=== PATIENT | male | born 1960 | race Caucasian/White ===

== ENCOUNTER 2017-04-17 12:15 | Emergency (ER) | payer MEDICARE, OTHER ==
[~2017-04-17] VITALS: Ht 172.7 cm; Wt 80.3 kg
[~2017-04-17 12:15] MED LIST: ACET650T10 PO; ACID1TAB12 PO; ALBU18HF2 INH; ALBU2.5V38 NEB; AMIO200T PO; ASCO500T9 PO; ASPI-1169 PO; BISA10SU8 RC; CLOP75TA15 PO; CRAN425C6 PO; DOCU-141 PO; FLUT1DIS3 INH; LORA-259 PO; MAGN400O6 PO; METO25TA6 PO; MULT1TAB11 PO; NA P133E RC; NITR0.4T48 SL; OLAN5TAB3 PO; PANT40TA2 PO; TIOT18CA3 INH
--- NOTE | 2017-04-17 12:30 | NUR ---
[facility] FROM [facility] DT LEFT FLANK PAIN X 3 WEEKS WORST TODAY. PATIENT IS AWAKE AND ALERT, APPEARS IN NO APPARENT DISTRESS. DENIES N/V/D, NO HEMATURIA NOR DYSURIA. VSS. PATIENT IS VENT/ TRACHE DEPENDENT. VSS
[2017-04-17 12:44] LABS: APPEARANCE,URINE Clear (CLEAR); BILIRUBIN,URINE Negative (NEGATIVE); BLOOD, URINE Negative Ery/uL (NEGATIVE); COLOR,URINE Yellow (YELLOW); KETONES,URINE Negative (NEGATIVE); LEUKOCYTE ESTERASE ,URINE Negative (NEGATIVE); NITRITE, URINE Negative (NEGATIVE); PROTEIN,URINE Negative (NEGATIVE); UGLUCOSE Negative (NEGATIVE); UROBILINOGEN,URINE 0.2 EU/dL (0.2)
[2017-04-17 12:55] LABS: BASOPHILS # (AUTO) 0.1 /CMM (0.0-0.2); BASOPHILS % (AUTO) 1.3 % (0.0-2.0); EOSINOPHILS # (AUTO) 0.1 /CMM (0.0-0.7); EOSINOPHILS % (AUTO) 1.3 % (0.0-6.0); HEMATOCRIT 34 % (39-51); HEMOGLOBIN 11.6 g/dL (13.5-17.5); LYMPHOCYTES # (AUTO) 1.2 /CMM (0.8-4.8); LYMPHOCYTES % (AUTO) 10.3 % (20.0-44.0); MEAN CORPUSCULAR HEMOGLOBIN 29 PG (26.0-33.0); MEAN CORPUSCULAR HGB CONC 34 g/dl (31.0-36.0); MEAN CORPUSCULAR VOLUME 85 fL (80-96); MONOCYTES # (AUTO) 0.5 /CMM (0.1-1.30); MONOCYTES % (AUTO) 4.8 % (2.0-12.0); NEUTROPHILS # (AUTO) 9.5 /CMM (1.8-8.9); NEUTROPHILS % (AUTO) 82.3 % (43.0-81.0); PLATELET COUNT (AUTO) 268 /CMM (150-450); RDW COEFFICIENT OF VARIATION 11.7 (11.5-15.0); RED BLOOD CELL COUNT(AUTO) 3.99 MIL/uL (4.5-6.0); WHITE BLOOD COUNT (AUTO) 11.4 K/uL (4.3-11.0)
[2017-04-17] MEDS ORDERED: ONDANSETRON HCL/PF - ER 4 MG/2 ML VIAL IV ONE (13:00)
[2017-04-17] MEDS ORDERED: IV NS 0.9% 1,000 ML BAG IV ONE (13:00)
[2017-04-17] MEDS ORDERED: HYDROMORPHONE 1 MG/1 ML DISP.SYRIN IV ONE (13:00)
[2017-04-17 13:06] LABS: CALCIUM, SERUM 9.4 mg/dL (8.5-10.1); CARBON DIOXIDE 38 mmol/L (21-32); CHLORIDE 100 mmol/L (98-107); CREATININE 0.6 mg/dL (0.6-1.3); GLUCOSE 86 mg/dL (74-106); POTASSIUM 4.5 mmol/L (3.5-5.1); SODIUM SERUM 137 mmol/L (136-145); UREA NITROGEN, BLOOD 13 mg/dL (7-18)
[2017-04-17] MEDS ORDERED: ONDANSETRON HCL/PF 4 MG/2 ML VIAL ONE (13:06)
[2017-04-17] MEDS ORDERED: HYDROMORPHONE 1 MG/1 ML DISP.SYRIN ONE (13:06)
[2017-04-17 13:08] LABS: INR 0.95 (0.85-1.15)
[2017-04-17 13:11] LABS: ALANINE AMINOTRANSFERASE 20 U/L (12-78); ALBUMIN 3.6 g/dL (3.4-5.0); ALKALINE PHOSPHATASE 145 U/L (46-116); ASPARTATE AMINOTRANSFERASE 16 U/L (15-37); BILIRUBIN,DIRECT 0.1 mg/dL (0.0-0.2); BILIRUBIN,TOTAL 0.2 mg/dL (0.2-1.0); TOTAL PROTEIN, SERUM 8.1 g/dL (6.4-8.2)
[2017-04-17 13:13] LABS: TROPONIN I < 0.017 ng/mL (0.00-0.056)
[2017-04-17] MEDS ORDERED: IOHEXOL-300 100 ML VIAL IV ONE (13:25)
[2017-04-17] MEDS ORDERED: IV NS 0.9% 500 ML IV ONE (13:25)
--- NOTE | 2017-04-17 15:52 | NUR ---
CALLED FOR [facility] TRANSPORT. [phone]
--- NOTE | 2017-04-17 17:35 | NUR ---
REPORT GIEN TO MAXIME RUSSELL THAT PATIENT IS GOING BACK TO FACILITY.
--- NOTE | 2017-04-17 17:41 | NUR ---
SPOKE WITH [facility] DISPATCHER, CHRISTOPHER, GIVEN A PROCESS ENGINEERING MANAGER TIME OF 1814. TRIP #[id number]
--- NOTE | 2017-04-17 18:54 | NUR ---
PTIENT WAS PICKED UP BY [facility] [employer]. VSS
[2017-04-17 19:08] VITALS: BP 133/74
== END 2017-04-17 18:57 | disposition home or self-care (01) ==
LOC: ER 12:16
DX: J96.10 Chronic respiratory failure, unspecified whether with hypoxia or hypercapnia (principal); R10.13 Epigastric pain; D72.829 Elevated white blood cell count, unspecified; D64.9 Anemia, unspecified; E11.9 Type 2 diabetes mellitus without complications; I10 Essential (primary) hypertension; F10.10 Alcohol abuse, uncomplicated; Z79.82 Long term (current) use of aspirin; Z93.0 Tracheostomy status; Z99.11 Dependence on respirator [ventilator] status; Z87.891 Personal history of nicotine dependence
CPT/HCPCS: 36415; 71045; 74160; 80048; 80076; 81001; 83605; 84484; 85025; 85730; 87040 ×2; 93005; 94002; 96361; 96374; 96375; 99285; A4606; J1170; J2405 ×2; J7040; Q9967; 81000-TC; Z7610

== ENCOUNTER 2017-09-19 19:14 | Inpatient (IN) | payer MEDICARE, OTHER ==
[~2017-09-19] VITALS: Ht 165.1 cm; Wt 89.8 kg
[~2017-09-19 19:14] MED LIST changes: +ALBUTEROL SULFATE 8 GM HFA.AER.AD IH PRN
[2017-09-19 19:30] VITALS: BP 136/91
[2017-09-19] MEDS ORDERED: IV NS 0.9% 500 ML BAG IV ONE (19:30)
[2017-09-19 19:51] LABS: BASOPHILS % (AUTO) 0.2 % (0.0-2.0); EOSINOPHILS % (AUTO) 2.8 % (0.0-6.0); HEMATOCRIT 39 % (39-51); LYMPHOCYTES # (AUTO) 1.2 /CMM (0.8-4.8); LYMPHOCYTES % (AUTO) 12.8 % (20.0-44.0); MEAN CORPUSCULAR HEMOGLOBIN 30 PG (26.0-33.0); MEAN CORPUSCULAR HGB CONC 34 g/dl (31.0-36.0); MEAN CORPUSCULAR VOLUME 90 fL (80-96); MONOCYTES # (AUTO) 0.6 /CMM (0.1-1.30); MONOCYTES % (AUTO) 6.9 % (2.0-12.0); NEUTROPHILS # (AUTO) 7.2 /CMM (1.8-8.9); NEUTROPHILS % (AUTO) 77.3 % (43.0-81.0); PLATELET COUNT (AUTO) 227 /CMM (150-450); RDW COEFFICIENT OF VARIATION 13.2 (11.5-15.0); WHITE BLOOD COUNT (AUTO) 9.3 K/uL (4.3-11.0)
[2017-09-19 20:20] LABS: CALCIUM, SERUM 9.6 mg/dL (8.5-10.1); CHLORIDE 100 mmol/L (98-107); CREATININE 0.7 mg/dL (0.6-1.3); GLUCOSE 96 mg/dL (74-106); POTASSIUM 5.1 mmol/L (3.5-5.1); SODIUM SERUM 140 mmol/L (136-145); UREA NITROGEN, BLOOD 17 mg/dL (7-18)
[2017-09-19] MEDS ORDERED: ALBUTEROL FS 2.5 MG/3 ML VIAL.NEB ONE (20:22)
[2017-09-19] MEDS ORDERED: IPRATROPIUM NEB FS 0.5 MG/2.5 ML AMPUL.NEB ONE (20:22)
[2017-09-19 20:24] LABS: CARBON DIOXIDE 44 mmol/L (21-32)
[2017-09-19 20:28] LABS: TROPONIN I < 0.017 ng/mL (0.00-0.056)
[2017-09-19] MEDS ORDERED: IPRATROPIUM NEB FS 0.5 MG/2.5 ML AMPUL.NEB NEB ONE (20:30)
[2017-09-19] MEDS ORDERED: ALBUTEROL FS 2.5 MG/3 ML VIAL.NEB NEB ONE (20:30)
[2017-09-19 20:49] LABS: ABG BASE EXCESS 11.6 mmol/L; ABG OXYGEN SATURATION 69.9 % (92.0-98.5); ABG PCO2 96.8 mmHg (35.0-45.0); ABG PH 7.261 (7.350-7.450); ABG PO2 40.5 mmHg (75.0-100.0); COHb 0.4 % (0.5-1.5); MetHb 0.5 % (0.0-1.5); O2Hb 69.3 % (94.0-97.0); PEEP,BG 5 cm H2O; SITE, ABG A-Line; VT, ABG 600 mL
[2017-09-19 20:55] VITALS: BP 97/75
[2017-09-19] MEDS ORDERED: PROSTAT PO (21:10)
[2017-09-19] MEDS ORDERED: [UNRECOGNIZED DRUG - OTHER] PO (21:22)
[2017-09-19] MEDS ORDERED: ALBU2.5V11 HHN (21:22)
[2017-09-19] MEDS ORDERED: IPRA12.9 IH (21:22)
[2017-09-19] MEDS ORDERED: ACET-73 PO (21:27)
[2017-09-19] MEDS ORDERED: methylPREDNISolone SOD SUCC 125 MG/2ML VIAL IV ONE (21:30)
[2017-09-19 21:40] LABS: THYROID STIMULATING HORMONE 2.27 uIU/mL (0.358-3.74)
[2017-09-19] MEDS ORDERED: AMIT25TA52 PO (21:42)
[2017-09-19] MEDS ORDERED: CHLO473M3 MM (21:42)
[2017-09-19] MEDS ORDERED: FERR325T23 PO (21:42)
[2017-09-19] MEDS ORDERED: ENOX40DI SUBCUT (21:42)
[2017-09-19] MEDS ORDERED: CLON0.5T PO (21:42)
[2017-09-19] MEDS ORDERED: LORA10TA68 PO (21:42)
[2017-09-19] MEDS ORDERED: ATOR10TA PO (21:42)
[2017-09-19] MEDS ORDERED: methylPREDNISolone SOD SUCC 125 MG/2ML VIAL ONE (21:42)
[2017-09-19] MEDS ORDERED: RANI150T8 PO (21:54)
[2017-09-19] MEDS ORDERED: PROP10TA10 PO (21:54)
[2017-09-19] MEDS ORDERED: HYDR-552 PO ×2 (21:54)
[2017-09-19] MEDS ORDERED: HYDR-3974 PO (21:54)
[2017-09-19] MEDS ORDERED: METH5TAB6 PO (21:54)
[2017-09-19] MEDS ORDERED: DEXT15DR6 EACHEYE (21:54)
[2017-09-19] MEDS ORDERED: IPRA12.9 HHN (22:05)
[2017-09-19] MEDS ORDERED: NITROGLYCERIN 0.4 MG/TAB BOTTLE SL PRN (23:30)
[2017-09-19] MEDS ORDERED: IPRATROPIUM BROMIDE 14 GM INHALER (or 12.9 GM) IH PRN (23:30)
[2017-09-20] VITALS: BP 113/80
[2017-09-20] MEDS ORDERED: ACETAMINOPHEN 325 MG TABLET PO PRN
[2017-09-20] MEDS ORDERED: ALBUTEROL FS 2.5 MG/0.5 ML VIAL.NEB NEB SCH
[2017-09-20] MEDS ORDERED: IPRATROPIUM NEB FS 0.5 MG/2.5 ML AMPUL.NEB NEB PRN
[2017-09-20] MEDS ORDERED: HYDROCODONE/APAP 5/325MG 1 EACH TABLET PO PRN
[2017-09-20] MEDS ORDERED: NA PHOS,M-B/NA PHOS,DI-BA 1 EA ENEMA RC PRN
[2017-09-20] MEDS ORDERED: MAGNESIUM HYDROXIDE 30 ML UDC PO PRN
[2017-09-20] MEDS: ALBUTEROL FS 2.5 MG/3 ML VIAL.NEB NEB SCH ×6 (01:45→23:30)
[2017-09-20] MEDS: ACETAMINOPHEN 325 MG TABLET PO SCH ×5 (01:45→23:57)
[2017-09-20 04:00] VITALS: BP 109/70
[2017-09-20] MEDS: IPRATROPIUM NEB FS 0.5 MG/2.5 ML AMPUL.NEB NEB SCH ×5 (07:35→23:30)
[2017-09-20 08:00] VITALS: BP 119/74
[2017-09-20] MEDS ORDERED: MAGN400T26 PO (08:04)
[2017-09-20] MEDS ORDERED: POLY15DR40 EACHEYE (08:04)
[2017-09-20] MEDS ORDERED: IPRA0.2S9 IH ×2 (08:04)
[2017-09-20] MEDS ORDERED: FLUTICASONE/VILANTEROL 1 EACH BLST.W.DEV IH SCH (09:00)
[2017-09-20] MEDS ORDERED: LORATADINE 10 MG TABLET PO SCH (09:00)
[2017-09-20] MEDS ORDERED: BISACODYL SUPP (10 MG) 10 MG/SUPP.RECT SUPP.RECT RC PRN (09:00)
[2017-09-20] MEDS: CHLORHEXIDINE GLUCONATE 15 ML UDC MM SCH ×3 (09:00→16:57)
[2017-09-20] MEDS: POLYVINYL ALCOHOL 15 ML BOTTLE EACHEYE SCH ×3 (09:00→16:57)
[2017-09-20] MEDS: LACTOBACILLUS RHAMNOSUS GG 1 EACH CAP.SPRINK PO SCH ×2 (10:12→16:56)
[2017-09-20] MEDS: LORATADINE 10 MG TABLET PO SCH (10:13)
[2017-09-20] MEDS: ASPIRIN 325 MG TABLET PO SCH (10:13)
[2017-09-20] MEDS: FERROUS SULFATE (325 MG) 325 MG/TAB TABLET PO SCH (10:13)
[2017-09-20] MEDS: CLOPIDOGREL BISULFATE 75 MG TABLET PO SCH (10:13)
[2017-09-20] MEDS: MULTIVITAMIN/LUTEIN/MINERALS 1 TAB PO SCH (10:13)
[2017-09-20] MEDS: ASCORBIC ACID 500 MG TABLET PO SCH (10:14)
[2017-09-20] MEDS: METHIMAZOLE (5MG) 5 MG TABLET PO SCH (10:14)
[2017-09-20] MEDS: clonazePAM 0.5 MG TABLET PO SCH ×2 (10:16→16:57)
[2017-09-20] MEDS: HYDROCODONE/APAP 5/325MG 1 EACH TABLET PO SCH (10:16)
[2017-09-20] MEDS: OLANZAPINE 2.5 MG TABLET PO SCH ×2 (10:17→16:57)
[2017-09-20] MEDS: PROSOURCE / PROSTAT (PYXIS) 30 ML UDC PO SCH (10:18)
[2017-09-20] MEDS: AMIODARONE HCL 200 MG TABLET PO SCH (10:19)
[2017-09-20] MEDS: PROPRANOLOL HCL 10 MG TABLET PO SCH ×3 (10:19→16:57)
[2017-09-20] MEDS: METOPROLOL TARTRATE 25 MG TABLET PO SCH ×2 (10:19→21:27)
[2017-09-20] MEDS: PANTOPRAZOLE 40 MG/PACK PACK PO SCH (10:20)
[2017-09-20 12:00] VITALS: BP 116/72
[2017-09-20] MEDS ORDERED: ALBUTEROL FS 2.5 MG/3 ML VIAL.NEB NEB PRN ×2 (14:00)
[2017-09-20 14:25] LABS: ABG BASE EXCESS 9.4 mmol/L; ABG OXYGEN SATURATION 97.2 % (92.0-98.5); ABG PCO2 67.7 mmHg (35.0-45.0); ABG PH 7.359 (7.350-7.450); ABG PO2 107.2 mmHg (75.0-100.0); AaDO2 100.1 mmHg; COHb 0.3 % (0.5-1.5); MetHb 0.5 % (0.0-1.5); O2Hb 96.4 % (94.0-97.0); PEEP,BG 8 cm H2O; SITE, ABG Left Radial; VENT MODE, BG AC 12 600 40% +8; VT, ABG 600 mL
[2017-09-20] MEDS: methylPREDNISolone SOD SUCC 125 MG/2ML VIAL IV SCH ×2 (14:36→21:25)
[2017-09-20 16:00] VITALS: BP 107/76
[2017-09-20] MEDS ORDERED: ALBUTEROL FS 2.5 MG/3 ML VIAL.NEB NEB SCH (17:00)
[2017-09-20] MEDS ORDERED: IPRATROPIUM NEB FS 0.5 MG/2.5 ML AMPUL.NEB NEB SCH (17:00)
[2017-09-20 20:00] VITALS: BP 110/74
[2017-09-20] MEDS: ATORVASTATIN 10 MG TABLET PO SCH (21:26)
[2017-09-20] MEDS: AMITRIPTYLINE HCL 25 MG TABLET PO SCH (21:26)
[2017-09-20] MEDS: DOCUSATE SODIUM 100 MG CAPSULE PO SCH (21:26)
[2017-09-20] MEDS: ENOXAPARIN SODIUM 30 MG/0.3 ML DISP.SYRIN SQ SCH ×2 (21:26→21:34)
[2017-09-21] VITALS: BP 111/76
[2017-09-21] MEDS: IPRATROPIUM NEB FS 0.5 MG/2.5 ML AMPUL.NEB NEB SCH ×6 (02:53→23:28)
[2017-09-21] MEDS: ALBUTEROL FS 2.5 MG/3 ML VIAL.NEB NEB SCH ×6 (02:54→23:28)
[2017-09-21 04:00] VITALS: BP 117/72
[2017-09-21] MEDS: ACETAMINOPHEN 325 MG TABLET PO SCH ×3 (05:07→17:15)
[2017-09-21] MEDS: PANTOPRAZOLE 40 MG/PACK PACK PO SCH (07:53)
[2017-09-21 08:00] VITALS: BP 128/89
[2017-09-21] MEDS: CHLORHEXIDINE GLUCONATE 15 ML UDC MM SCH ×2 (08:14→17:39)
[2017-09-21] MEDS: METHIMAZOLE (5MG) 5 MG TABLET PO SCH (08:14)
[2017-09-21] MEDS: methylPREDNISolone SOD SUCC 125 MG/2ML VIAL IV SCH ×2 (08:14→17:14)
[2017-09-21] MEDS: ASCORBIC ACID 500 MG TABLET PO SCH (08:14)
[2017-09-21] MEDS: ASPIRIN 325 MG TABLET PO SCH (08:14)
[2017-09-21] MEDS: LACTOBACILLUS RHAMNOSUS GG 1 EACH CAP.SPRINK PO SCH ×2 (08:15→17:15)
[2017-09-21] MEDS: LORATADINE 10 MG TABLET PO SCH (08:15)
[2017-09-21] MEDS: clonazePAM 0.5 MG TABLET PO SCH ×2 (08:15→17:15)
[2017-09-21] MEDS: HYDROCODONE/APAP 5/325MG 1 EACH TABLET PO SCH (08:15)
[2017-09-21] MEDS: CLOPIDOGREL BISULFATE 75 MG TABLET PO SCH (08:15)
[2017-09-21] MEDS: FERROUS SULFATE (325 MG) 325 MG/TAB TABLET PO SCH (08:15)
[2017-09-21] MEDS: AMIODARONE HCL 200 MG TABLET PO SCH (08:16)
[2017-09-21] MEDS: MULTIVITAMIN/LUTEIN/MINERALS 1 TAB PO SCH (08:22)
[2017-09-21] MEDS: OLANZAPINE 2.5 MG TABLET PO SCH ×2 (08:22→17:15)
[2017-09-21] MEDS: PROPRANOLOL HCL 10 MG TABLET PO SCH ×3 (08:23→17:15)
[2017-09-21] MEDS: METOPROLOL TARTRATE 25 MG TABLET PO SCH ×2 (08:23→20:40)
[2017-09-21] MEDS: POLYVINYL ALCOHOL 15 ML BOTTLE EACHEYE SCH ×3 (08:31→17:37)
[2017-09-21] MEDS: PROSOURCE / PROSTAT (PYXIS) 30 ML UDC PO SCH (08:31)
[2017-09-21 12:00] VITALS: BP 154/91
[2017-09-21 16:00] VITALS: BP 126/89
[2017-09-21] MEDS ORDERED: IV NS 0.9% 500 ML BAG IV ONE (16:00)
[2017-09-21 20:00] VITALS: BP 120/57
[2017-09-21] MEDS: HYDROCODONE/APAP 5/325MG 1 EACH TABLET PO PRN (20:40)
[2017-09-21] MEDS: ENOXAPARIN SODIUM 40 MG/0.4 ML DISP.SYRIN SQ SCH (20:41)
[2017-09-21] MEDS: DOCUSATE SODIUM 100 MG CAPSULE PO SCH (21:01)
[2017-09-21] MEDS: ATORVASTATIN 10 MG TABLET PO SCH (21:01)
[2017-09-21] MEDS: AMITRIPTYLINE HCL 25 MG TABLET PO SCH (21:01)
[2017-09-22] VITALS: BP 134/88
[2017-09-22] MEDS: POLYVINYL ALCOHOL 15 ML BOTTLE EACHEYE SCH ×3 (00:01→17:00)
[2017-09-22] MEDS: ALBUTEROL FS 2.5 MG/3 ML VIAL.NEB NEB SCH ×6 (03:28→23:06)
[2017-09-22] MEDS: IPRATROPIUM NEB FS 0.5 MG/2.5 ML AMPUL.NEB NEB SCH ×6 (03:28→23:05)
[2017-09-22 04:00] VITALS: BP 125/79
[2017-09-22] MEDS: ACETAMINOPHEN 325 MG TABLET PO SCH ×4 (05:09→18:00)
[2017-09-22 07:39] LABS: HEMATOCRIT 36 % (39-51); HEMOGLOBIN 11.6 g/dL (13.5-17.5); LYMPHOCYTES % (AUTO) 5.4 % (20.0-44.0); MEAN CORPUSCULAR HEMOGLOBIN 31 PG (26.0-33.0); MEAN CORPUSCULAR HGB CONC 33 g/dl (31.0-36.0); MEAN CORPUSCULAR VOLUME 94 fL (80-96); MONOCYTES # (AUTO) 1.4 /CMM (0.1-1.30); MONOCYTES % (AUTO) 7.3 % (2.0-12.0); NEUTROPHILS # (AUTO) 16.3 /CMM (1.8-8.9); NEUTROPHILS % (AUTO) 87.3 % (43.0-81.0); PLATELET COUNT (AUTO) 223 /CMM (150-450); RED BLOOD CELL COUNT(AUTO) 3.81 MIL/uL (4.5-6.0); WHITE BLOOD COUNT (AUTO) 18.6 K/uL (4.3-11.0)
[2017-09-22 07:53] LABS: CALCIUM, SERUM 9.2 mg/dL (8.5-10.1); CREATININE 0.6 mg/dL (0.6-1.3); MAGNESIUM 2.1 mg/dL (1.8-2.4); PHOSPHORUS 2.6 mg/dL (2.5-4.9); POTASSIUM 4.3 mmol/L (3.5-5.1)
[2017-09-22 08:00] VITALS: BP 118/80
[2017-09-22] MEDS: methylPREDNISolone SOD SUCC 125 MG/2ML VIAL IV SCH (08:11)
[2017-09-22] MEDS: METOPROLOL TARTRATE 25 MG TABLET PO SCH ×2 (08:12→20:55)
[2017-09-22] MEDS: FERROUS SULFATE (325 MG) 325 MG/TAB TABLET PO SCH (08:12)
[2017-09-22] MEDS: PANTOPRAZOLE 40 MG/PACK PACK PO SCH (08:12)
[2017-09-22] MEDS: AMIODARONE HCL 200 MG TABLET PO SCH (08:12)
[2017-09-22] MEDS: ASPIRIN 325 MG TABLET PO SCH (08:12)
[2017-09-22] MEDS: CLOPIDOGREL BISULFATE 75 MG TABLET PO SCH (08:12)
[2017-09-22] MEDS: METHIMAZOLE (5MG) 5 MG TABLET PO SCH (08:12)
[2017-09-22] MEDS: LORATADINE 10 MG TABLET PO SCH (08:12)
[2017-09-22] MEDS: PROPRANOLOL HCL 10 MG TABLET PO SCH ×3 (08:12→16:31)
[2017-09-22] MEDS: clonazePAM 0.5 MG TABLET PO SCH ×2 (08:12→16:31)
[2017-09-22] MEDS: OLANZAPINE 2.5 MG TABLET PO SCH ×2 (08:13→16:31)
[2017-09-22] MEDS: ASCORBIC ACID 500 MG TABLET PO SCH (08:13)
[2017-09-22] MEDS: MULTIVITAMIN/LUTEIN/MINERALS 1 TAB PO SCH (08:13)
[2017-09-22] MEDS: LACTOBACILLUS RHAMNOSUS GG 1 EACH CAP.SPRINK PO SCH ×2 (08:15→16:31)
[2017-09-22] MEDS: HYDROCODONE/APAP 5/325MG 1 EACH TABLET PO SCH (08:15)
[2017-09-22] MEDS: CHLORHEXIDINE GLUCONATE 15 ML UDC MM SCH ×2 (09:00→17:00)
[2017-09-22] MEDS: PROSOURCE / PROSTAT (PYXIS) 30 ML UDC PO SCH (09:00)
[2017-09-22 09:36] LABS: THYROID STIMULATING HORMONE 1.058 uIU/mL (0.358-3.74)
[2017-09-22 12:00] VITALS: BP 119/76
[2017-09-22 16:00] VITALS: BP 127/83
[2017-09-22] MEDS: HYDROCODONE/APAP 5/325MG 1 EACH TABLET PO PRN ×2 (16:37→20:53)
[2017-09-22 20:00] VITALS: BP 127/88
[2017-09-22] MEDS: DOCUSATE SODIUM 100 MG CAPSULE PO SCH (20:52)
[2017-09-22] MEDS: AMITRIPTYLINE HCL 25 MG TABLET PO SCH (20:53)
[2017-09-22] MEDS: ATORVASTATIN 10 MG TABLET PO SCH (20:55)
[2017-09-22] MEDS: ENOXAPARIN SODIUM 40 MG/0.4 ML DISP.SYRIN SQ SCH (20:55)
[2017-09-23] VITALS (7 sets, daily range): BP systolic 99–129; BP diastolic 64–89
[2017-09-23] MEDS: ACETAMINOPHEN 325 MG TABLET PO SCH ×4 (00:38→17:22)
[2017-09-23] MEDS: POLYVINYL ALCOHOL 15 ML BOTTLE EACHEYE SCH ×3 (00:43→17:22)
[2017-09-23] MEDS: IPRATROPIUM NEB FS 0.5 MG/2.5 ML AMPUL.NEB NEB SCH ×4 (03:09→15:00)
[2017-09-23] MEDS: ALBUTEROL FS 2.5 MG/3 ML VIAL.NEB NEB SCH ×4 (03:10→14:59)
[2017-09-23 06:24] LABS: BASOPHILS % (AUTO) 0.1 % (0.0-2.0); HEMATOCRIT 36 % (39-51); HEMOGLOBIN 11.7 g/dL (13.5-17.5); LYMPHOCYTES # (AUTO) 1.8 /CMM (0.8-4.8); MEAN CORPUSCULAR HEMOGLOBIN 31 PG (26.0-33.0); MEAN CORPUSCULAR HGB CONC 33 g/dl (31.0-36.0); MEAN CORPUSCULAR VOLUME 94 fL (80-96); MONOCYTES # (AUTO) 1.5 /CMM (0.1-1.30); MONOCYTES % (AUTO) 8.9 % (2.0-12.0); NEUTROPHILS # (AUTO) 13.1 /CMM (1.8-8.9); PLATELET COUNT (AUTO) 216 /CMM (150-450); RDW COEFFICIENT OF VARIATION 14.5 (11.5-15.0); RED BLOOD CELL COUNT(AUTO) 3.81 MIL/uL (4.5-6.0); WHITE BLOOD COUNT (AUTO) 16.4 K/uL (4.3-11.0)
[2017-09-23 06:51] LABS: CREATININE 0.7 mg/dL (0.6-1.3); MAGNESIUM 2.1 mg/dL (1.8-2.4); PHOSPHORUS 2.8 mg/dL (2.5-4.9); POTASSIUM 4.2 mmol/L (3.5-5.1)
[2017-09-23] MEDS: PANTOPRAZOLE 40 MG/PACK PACK PO SCH (07:34)
[2017-09-23] MEDS ORDERED: methylPREDNISolone SOD SUCC 40 MG/ML VIAL IV SCH (09:00)
[2017-09-23] MEDS: ASPIRIN 325 MG TABLET PO SCH (09:00)
[2017-09-23] MEDS: AMIODARONE HCL 200 MG TABLET PO SCH (09:00)
[2017-09-23] MEDS: MULTIVITAMIN/LUTEIN/MINERALS 1 TAB PO SCH (09:00)
[2017-09-23] MEDS: METHIMAZOLE (5MG) 5 MG TABLET PO SCH (09:00)
[2017-09-23] MEDS: PROPRANOLOL HCL 10 MG TABLET PO SCH ×3 (09:00→17:22)
[2017-09-23] MEDS: LACTOBACILLUS RHAMNOSUS GG 1 EACH CAP.SPRINK PO SCH ×2 (09:01→17:22)
[2017-09-23] MEDS: ASCORBIC ACID 500 MG TABLET PO SCH (09:01)
[2017-09-23] MEDS: CHLORHEXIDINE GLUCONATE 15 ML UDC MM SCH ×2 (09:01→17:21)
[2017-09-23] MEDS: FERROUS SULFATE (325 MG) 325 MG/TAB TABLET PO SCH (09:01)
[2017-09-23] MEDS: HYDROCODONE/APAP 5/325MG 1 EACH TABLET PO SCH (09:01)
[2017-09-23] MEDS: clonazePAM 0.5 MG TABLET PO SCH ×2 (09:01→17:22)
[2017-09-23] MEDS: OLANZAPINE 2.5 MG TABLET PO SCH ×2 (09:01→17:22)
[2017-09-23] MEDS: CLOPIDOGREL BISULFATE 75 MG TABLET PO SCH (09:02)
[2017-09-23] MEDS: METOPROLOL TARTRATE 25 MG TABLET PO SCH (09:02)
[2017-09-23] MEDS: LORATADINE 10 MG TABLET PO SCH (09:02)
[2017-09-23] MEDS: PROSOURCE / PROSTAT (PYXIS) 30 ML UDC PO SCH (09:03)
== END 2017-09-23 18:33 | DRG 208 ==
LOC: ER 19:16 → TELE-TD 21:22 → TELE1 09-21 17:27
PROVIDERS: ADMIT Internal Medicine; ATTEND Internal Medicine
PROC: 5A1945Z Respiratory Ventilation, 24-96 Consecutive Hours (ICD-10-PCS; principal; 2017-09-19)
DX: J96.22 Acute and chronic respiratory failure with hypercapnia (principal); Z99.11 Dependence on respirator [ventilator] status; I48.0 Paroxysmal atrial fibrillation; I25.10 Atherosclerotic heart disease of native coronary artery without angina pectoris; F41.9 Anxiety disorder, unspecified; G40.909 Epilepsy, unspecified, not intractable, without status epilepticus; N40.0 Benign prostatic hyperplasia without lower urinary tract symptoms; E11.9 Type 2 diabetes mellitus without complications; F32.9 Major depressive disorder, single episode, unspecified; R13.10 Dysphagia, unspecified; Z93.0 Tracheostomy status; E05.90 Thyrotoxicosis, unspecified without thyrotoxic crisis or storm; D72.829 Elevated white blood cell count, unspecified; Z87.891 Personal history of nicotine dependence; Z86.73 Personal history of transient ischemic attack (TIA), and cerebral infarction without residual deficits; I10 Essential (primary) hypertension; T38.0X5A Adverse effect of glucocorticoids and synthetic analogues, initial encounter; Y92.89 Other specified places as the place of occurrence of the external cause; J44.9 Chronic obstructive pulmonary disease, unspecified; R07.9 Chest pain, unspecified
CPT/HCPCS: 31720; 36415; 36600; 71045-TC; 80048-TC; 80061-TC; 82306; 82728-TC; 82803-TC; 83540-TC; 83735-TC; 84100-TC; 84439-TC; 84443-TC; 84484-TC; 85025-TC; 87081-TC; 93307-TC; 94002-TC; 94003-TC; 94760-TC; A4606; A6402; J1650; J2920; J2930; J7040; Z7610